=== PATIENT | female | born 1960 | race Two or more races ===

== ENCOUNTER 2022-10-24 06:07 | Emergency (ER) | payer BC, OTHER ==
[~2022-10-24] VITALS: Ht 165.1 cm; Wt 61.2 kg
[2022-10-24] MEDS ORDERED: ACETAMINOPHEN 325 MG TABLET ONE (06:56)
[2022-10-24] MEDS ORDERED: IBUPROFEN 400 MG TABLET ONE (06:56)
[2022-10-24] MEDS ORDERED: ACETAMINOPHEN 325 MG TABLET PO ONE (07:00)
[2022-10-24] MEDS ORDERED: IBUPROFEN 400 MG TABLET PO ONE (07:00)
[2022-10-24] MEDS ORDERED: IBUP-1955 PO (08:07)
[2022-10-24] MEDS ORDERED: CYCL5TAB PO (08:07)
[2022-10-24 08:44] VITALS: BP 100/60; TEMP 98.2; O2SAT 100
== END 2022-10-24 08:44 | disposition home or self-care (01) ==
LOC: ER 06:11
DX: S20.212A Contusion of left front wall of thorax, initial encounter (principal); S00.83XA Contusion of other part of head, initial encounter; E03.9 Hypothyroidism, unspecified; Z88.2 Allergy status to sulfonamides; Z91.040 Latex allergy status; Z88.1 Allergy status to other antibiotic agents; W01.0XXA Fall on same level from slipping, tripping and stumbling without subsequent striking against object, initial encounter; Y93.89 Activity, other specified; Y92.89 Other specified places as the place of occurrence of the external cause; Y99.8 Other external cause status
CPT/HCPCS: 70450-TC; 71100-TC; 72125-TC